=== PATIENT | male | born 1995 | race Caucasian/White ===

== ENCOUNTER 2021-10-07 13:14 | Emergency (ER) | payer OTHER ==
[~2021-10-07] VITALS: Ht 165.1 cm; Wt 97.2 kg
[2021-10-07 13:14] VITALS: BP 129/80
[~2021-10-07 13:14] MED LIST: SERT50TA29 PO
[2021-10-07] MEDS ORDERED: DOXY100C3 PO (13:31)
== END 2021-10-07 15:15 | disposition home or self-care (01) ==
LOC: M ED 13:14
DX: R59.9 Enlarged lymph nodes, unspecified (principal); U09.9 Post COVID-19 condition, unspecified

== ENCOUNTER 2022-01-19 09:00 | Emergency (ER) | payer OTHER ==
[~2022-01-19] VITALS: Ht 165.1 cm; Wt 95.5 kg
[~2022-01-19 09:00] MED LIST changes: +DOXY100C3 PO
[2022-01-19] MEDS ORDERED: LEXA1TAB PO (09:18)
[2022-01-19] MEDS ORDERED: LIDOCAINE 5% (LIDODERM) PATCH TD ONE (11:25)
[2022-01-19] MEDS ORDERED: CYCLOBENZAPRINE 5MG TABLET PO ONE (11:25)
[2022-01-19] MEDS ORDERED: KETOROLAC 30 MG/ML 1ML VIAL IM ONE (11:25)
[2022-01-19] MEDS ORDERED: LIDO5DIS41 TD (12:32)
[2022-01-19] MEDS ORDERED: BACL10TA2 PO (12:32)
[2022-01-19] MEDS ORDERED: KETO10TAB PO (12:32)
[2022-01-19 12:42] VITALS: BP 116/59
[2022-01-19] MEDS ORDERED: **NOTE PATIENT COMMENT** MISC XX SCH (21:00)
== END 2022-01-19 12:54 | disposition home or self-care (01) ==
LOC: M ED 09:00
DX: S39.012A Strain of muscle, fascia and tendon of lower back, initial encounter (principal); X50.0XXA Overexertion from strenuous movement or load, initial encounter; Y92.9 Unspecified place or not applicable; Y93.9 Activity, unspecified; Y99.9 Unspecified external cause status
CPT/HCPCS: 96372; 99284; J1885